=== PATIENT | female | born 1975 | race Hispanic/Latino ===

== ENCOUNTER 2020-04-23 01:39 | Emergency (ER) | payer SELFPAY ==
[~2020-04-23] VITALS: Ht 162.6 cm; Wt 68.0 kg
[2020-04-23] MEDS ORDERED: LORAZEPAM 0.5 MG TAB ONE (02:23)
[2020-04-23] MEDS ORDERED: LORAZEPAM 1 MG TAB PO PRN (02:30)
[2020-04-23] MEDS ORDERED: ATIVAN1 MG PO (02:39)
[2020-04-23 03:16] VITALS: BP 117/70
== END 2020-04-23 03:16 | disposition home or self-care (01) ==
LOC: FSED 02:02
DX: F41.0 Panic disorder [episodic paroxysmal anxiety] (principal); F41.9 Anxiety disorder, unspecified; G44.209 Tension-type headache, unspecified, not intractable; M54.2 Cervicalgia; E05.90 Thyrotoxicosis, unspecified without thyrotoxic crisis or storm; F17.210 Nicotine dependence, cigarettes, uncomplicated
CPT/HCPCS: 99283